=== PATIENT | male | born 1950 | race Caucasian/White ===

== ENCOUNTER → 2019-06-02 10:06 | Outpatient (CLI) | payer MEDICARE, OTHER, SELFPAY ==
[2019-06-07 20:07] LABS: HEPATITIS B SURFACE AG Negative (Negative); Hepatitis A AB, Total Negative (Negative); Hepatitis A IgM Antibody Negative (Negative); Hepatitis B Core AB IgM Negative (Negative); Hepatitis B Core Ab Total Negative (Negative); Hepatitis C Ab <0.1 s/co ratio (0.0-0.9); QNTFERON TB Mitogen Value > 10.00 IU/mL (.); QNTFERON TB Nil Value 0.08 IU/mL (.); QNTFERON TB1+ Ag Value 0.15 IU/mL (.); QNTFERON TB2+ Ag Value 0.09 IU/mL (.)
[2019-06-07 20:11] LABS: Hep B Surface Antibodies Non Reactive (.)
[2019-06-07 20:12] LABS: QNTIFERON TB Positive Criteria Negative (Negative)
== END ==
PROVIDERS: Referring Provider Physician Assistant Medical; Visit Provider Physician Assistant Medical
DX: L40.0 Psoriasis vulgaris (principal); Z79.899 Other long term (current) drug therapy
CPT/HCPCS: 36415; 86480; 86704; 86705; 86706; 86708; 86709; 86803; 87340

== ENCOUNTER → 2022-08-06 | Outpatient (CLI) | payer MEDICARE, OTHER, SELFPAY ==
[2022-08-08 16:08] LABS: QNTFERON TB Mitogen Value > 10.00 IU/mL (.); QNTFERON TB Nil Value 0 IU/mL (.); QNTFERON TB1+ Ag Value 0 IU/mL (.); QNTFERON TB2+ Ag Value 0.01 IU/mL (.)
[2022-08-08 22:19] LABS: Hepatitis B Core Ab Total Negative (Negative); QNTIFERON TB Positive Criteria Negative (Negative)
== END | disposition home or self-care (01) ==
PROVIDERS: Referring Provider Physician Assistant; Visit Provider Physician Assistant
DX: L40.0 Psoriasis vulgaris (principal)
CPT/HCPCS: 36415; 86480; 86704

== ENCOUNTER → 2023-08-30 | Outpatient (CLI) | payer MEDICARE, OTHER, SELFPAY ==
--- OUTSIDE RECORDS SUMMARY | 2023-08-30 11:20 | XMS RPT_ITS | CCD ---
Author Name Unknown Address [facility] [place] [address] Organization [facility] Care Team Providers Care [employer] Name Role Phone MAX GRAHAM MD Primary Care Physician MAX GRAHAM MD Primary Care Unavailable ESTEBAN BAR DO Consulting Unavailable ESTEBAN BAR DO Attending Unavailable MAX GRAHAM MD Attending Unavailable MAX GRAHAM MD Primary Care Unavailable Medications Current Medications Medication Drug Class(es) Dates Sig (Normalized) Sig (Original) betamethasone 0.5 mg/ml / clotrimazole 10 mg/ml topical cream (2 sources) Azole Antifungal, Corticosteroid Start: 08-05-2021 Lotrisone 1%-0.05% topical cream Apply 1 john, Topical, BID, # 45 gram(s), 1 Refill(s), Pharmacy: [id number], Cream, 174, cm, 08/05/21 15:08:00 EST, Height, 132.5, kg, 08/05/21 15:08:00 EST, Dosing Weight Start Date: 08/05/21 Status: Ordered Problems Problem Classification Problem Date Documented Da te Episodic/Chronic Essential hypertension (2 sources) Hypertensive disorder 10-30-2019 Chronic Other inflammatory condition of skin (2 sources) Psoriasis 10-30-2019 Chronic Other nervous system disorders (2 sources) Paresthesia of foot 08-05-2021 Episodic Other nervous system disorders (1 source) Paresthesia 08-19-2021 Episodic Residual codes; unclassified (2 sources) Requires vaccination 04-09-2020 Episodic Thyroid disorders (2 sources) Hypothyroidism 10-30-2019 Chronic Unclassified (1 source) Patient encounter status 09-16-2022 Results Test Name Value Interpretation Reference Range Facil ity Encounters Encounter Date Encounter Type Care Provider Facility Start: 09-16-2022 End: 09-17-2022 ambulatory MAX GRAHAM MD Facility:B Start: 09-16-2022 End: 09-16-2022 Patient encounter procedure MAX GRAHAM MD [facility] Start: 07-08-2022 End: 07-08-2022 ambulatory MAX GRAHAM MD Facility:B Start: 08-11-2021 End: 08-11-2021 Patient encounter procedure MAX GRAHAM MD [facility] Procedures Date Procedure Procedure Detail Performing Clinician Start: 07-08-2022 Colonoscopy MAX NOGUEIRA MD Immunizations Immunization Date Immunization Notes Care Provider [facility] 04-21-2022 influenza virus vaccine, unspecified formulation MAX GRAHAM MD [facility] 05-30-2021 influenza virus vaccine, unspecified formulation MAX GRAHAM MD [facility] 10-10-2020 SARS-CoV-2 (COVID-19 ) mRNA-1273 vaccine MAX GRAHAM MD [facility] Payers Date Payer Category Payer Unknown [id number] 2022 Medicare [id number] 1950 Unknown [id number] 1950 Unknown [id number] Social History Date Type Detail Facility Start: 06-09-2019 Never smoked t obacco (finding) [facility] Sex Assigned At Male [facility] Evaluation + Plan note Note Date & Type Note Facility Evaluation + Plan note Future Appointments Appointment Date:08/19/2021 03:00:00 PM Scheduled Provider:MAX GRAHAM MD Location:[facility] Appointment Type:PC OV Diagnostic Tests PendingAntinuclear Antibody Screen, Serum 08/11/21 [facility] Hospital course Narrative Note Date & Type Note Facility Hospital course Narrative No data available for this section [facility] Hospital Discharge instructions Note Date & Type Note Facility Hospital Discharge instructions No data available for this section [facility] Progress note Note Date & Type Note Facility Progress note No data available for this section [facility] Summary Purpose Family History No Family History Records Found Advance Directives No Advanced Directives Records Found Additional Source Comments Patient Care team informatio n (unrecognized section and content) Care Team Personnel Name: MAX GRAHAM MD Position: P4 Physician - Primary Care Member Role: Primary Care Physician Address: Address: [address] [place] [address] [facility] [place], [place] [address] Care Team Related Persons Name: DEYA PADRON Name: MARGRET PADRON Address: Home [address] [place], [place] [id number] (unrecognized sect ion and content) No Status Records Found INFORMATION SOURCE (unrecogn ized section and content) FOR RECORDS PERTAINING TO PATIENTS WHO ARE OR HAVE BEEN ENROLLED IN A CHEMICAL DEPENDENCY/SUBSTANCEABUSE PROGRAM, SOME INFORMATION MAY BE OMITTED. This clinical summary was aggregated from multiple sources. Caution should be exercised in using it in the provision of clinical care. This summary normalizes information from multiple sources, and as a consequence, information in this document may materially change the coding, format and clinical context of patient data. In addition, data may be omitted in some cases. CLINICAL DECISIONS SHOULD BE BASED ON THE PRIMARY CLINICAL RECORDS. [employer] provides no warranty or guarantee of the accuracy or completeness of information in this document.
[2023-09-02 09:09] LABS: QNTFERON TB Mitogen Value > 10.00 IU/mL (.); QNTFERON TB Nil Value 0.01 IU/mL (.); QNTFERON TB1+ Ag Value 0.01 IU/mL (.); QNTFERON TB2+ Ag Value 0.01 IU/mL (.); QNTIFERON TB Positive Criteria Negative (Negative)
== END | disposition home or self-care (01) ==
LOC: MTLAB 10:37
PROVIDERS: PCP Family Medicine; Referring Provider Physician Assistant; Visit Provider Physician Assistant
DX: L40.0 Psoriasis vulgaris (principal); L85.8 Other specified epidermal thickening; Z79.899 Other long term (current) drug therapy
CPT/HCPCS: 36415; 86480

== ENCOUNTER 2024-06-26 20:35 | Emergency (ER) | payer MEDICARE, OTHER, SELFPAY ==
[2024-06-26 20:36] VITALS: BP 215/100; PULSE 64; RESP 18; TEMP 36.8; O2SAT 99; BMI 43.6
[2024-06-26 21:41] VITALS: BP 200/115; PULSE 98; RESP 14; O2SAT 98
--- NOTE | 2024-06-26 21:49 | EKG12_ITS ---
Test Reason : DYSRHYTHMIA Blood Pressure : */* mmHG Vent. Rate : 68 BPM Atrial Rate : 68 BPM P-R Int : 210 ms QRS Dur : 96 ms QT Int : 416 ms P-R-T Axes : 22 -20 12 degrees QTcB Int : 442 ms Sinus rhythm with 1st degree A-V block Otherwise normal ECG Confirmed by Robert Benedict ([id number]), graphic editor DELMIS SEQUEIRA ([id number]) on 06/27/2024 1:30:02 PM Referred By: Confirmed By: Robert Benedict
--- NOTE | 2024-06-26 21:50 | EX.ED.DYSGE1 ---
HPI History of Present Illness Chief Complaint: General Illness Informant: patient and family Narrative Narrative: 74-year-old male states not feeling well today. States he maybe felt a little bit like this yesterday but not as bad as today. Some lightheadedness, malaise, some intermittent dyspnea today, and gradually developed a headache later in the day for which he took ibuprofen, his headache is gone now. Came to the ER to be evaluated for this, and blood pressure 215/100. States his blood pressure is never been this high. Last time he had a checked was in the summer during his last PCP routine appointment, he does not know what it was but his doctor was not concerned about it and the has had no changes in his losartan 50 mg daily which he takes for blood pressure. He denies any recent illness or decongestants or any other [id number] medications except ibuprofen he took earlier. Has not forgotten to take his blood pressure medication. No recent injuries. Denies any focal neurologic symptoms. No syncope today just some lightheadedness. No chest discomfort or palpitations with the dyspnea he was having. No recent cough or fevers. He states that his has Parkinson's, has been getting worse with that, he is the primary caregiver, and he has been under significant stress with regards to caring for her recently. [facility] Medical History (Updated 06/26/24 @ 23:[address] Deandre David MD) Peripheral neuropathy Hypothyroid Hypertension Home Medications ?Medication ?Instructions ?Recorded ?Last Taken ?Type gabapentin 100 mg capsule 200 mg PO TID 06/26/24 Unknown History hydralazine 25 mg tablet 25 mg PO TID #42 tabs 06/26/24 Unknown Rx levothyroxine 100 mcg tablet 100 mcg PO DAILY 06/26/24 Unknown History losartan 50 mg tablet 50 mg PO DAILY 06/26/24 Unknown History ustekinumab 90 mg/mL subcutaneous 1 subcut .[id number] 06/26/24 Unknown History syringe (Stelara) Allergy/AdvReac Type Severity Reaction Status Date / Time No Known Allergies Allergy Verified 06/26/24 20:36 Social History Smoking Status: Never smoker ROS ROS ED Constitutional Constitutional ED: Reports malaise; Denies chills or fever(s) Eyes Eyes: Denies change in vision or diplopia ENT ENT ED: Denies rhinorrhea or sore throat Cardiovascular Cardiovascular: Denies chest pain, orthopnea or palpitations Respiratory/Chest Respiratory/Chest: Reports dyspnea; Denies cough or orthopnea Gastrointestinal Gastrointestinal: Denies abdominal pain, diarrhea, nausea or vomiting Genitourinary Genitourinary ED: Denies dysuria or hematuria Musculoskeletal Musculoskeletal: Denies back pain or neck pain Integumentary Denies abscess or rash Neurologic Neurologic: Reports headache(s); Denies abnormal gait, abnormal speech, confusion, disequilibrium, lack of coordination, loss of vision, paresthesias, seizures or weakness Psychiatric Psychiatric: Denies anxiety or suicidal thoughts EXAM Physical Exam Const Vital Signs: 06/26/24 20:36 06/26/24 21:41 06/26/24 21:41 Temperature 98.2 F Temperature Source Oral Pulse Rate 64 98 Respiratory Rate 18 14 Respiratory Effort Normal Respiratory Pattern Normal Blood Pressure 215/100 H 200/115 H Blood Pressure Mean 138 143 Pulse Ox 99 98 Oxygen Delivery Method Room Air Room Air 06/26/24 22:30 06/26/24 23:32 Temperature Temperature Source Pulse Rate 66 Respiratory Rate 18 Respiratory Effort Respiratory Pattern Blood Pressure 172/87 H 163/84 H Blood Pressure Mean 115 110 Pulse Ox 98 Oxygen Delivery Method Room Air Positive well nourished and well developed General Appearance ED: well developed and NAD HEENT Reports moist mucous membranes normocephalic and atraumatic Eyes PERRL and EOMs intact bilaterally Neck full ROM and supple Resp normal respiratory effort and clear to auscultation bilaterally Cardio regular rate, regular rhythm and no murmurs Rate: Negative for tachycardic GI non-tender and non-distended Auscultation: normoactive bowel sounds Palpation: soft Back/Spine no CVA tenderness General Back: other FROM Extremity normal to inspection General Extremety ED: Negative for edema, pulses abnormal or tenderness General Extremity: Negative for edema or pulses abnormal Neuro oriented x3, CN's II-XII intact bilaterally and no sensory deficits noted Sensorium / Orientation: awake and alert Motor Exam: strength 5/5 throughout Psych mental status grossly normal Skin no rashes or lesions noted and no wounds MDM MDM MDM Narrative Medical decision making narrative: I suspect patient's symptoms are from the elevated blood pressure. How long it has been high obviously is unknown. Gave him hydralazine 10 mg in the meantime his blood pressure went down to the 130s and then went back up a little bit after that but he was feeling better. His workup is unremarkable there is no sign of kidney injury, acute coronary syndrome, dysrhythmia, or acute metabolic disturbance. I do not think he needs a head CT since he took ibuprofen and his headache resolved. Two-view chest x-ray normal in my interpretation radiology in agreement. I think his dyspnea was probably related to his blood pressure as well, he has no resting tachycardia here and is on no AV kem blockers, is not hypoxic with pulse ox 99% room air so I do not think he needs to be worked up for pulmonary embolus as a cause of the symptoms. Urine shows mild proteinuria. I am going to give him a prescription for couple weeks worth of hydralazine to start until he can follow-up with his doctor. He is comfortable with that plan. Lab Data Attestation: I reviewed the patient's lab results. Labs: Laboratory Results - last 24 hr 06/26/24 06/26/24 22:05 23:21 WBC 7.0 RBC 5.31 Hgb 15.7 Hct 47.1 MCV 88.7 MCH 29.6 MCHC 33.3 RDW Std Deviation 44.9 H RDW Coeff of Garrett 13.8 Plt Count 255 MPV 9.7 Immature Gran % (Auto) 0.300 Neut % (Auto) 60.2 Lymph % (Auto) 24.5 [place] % (Auto) 9.9 Eos % (Auto) 4.1 Baso % (Auto) 1.0 Absolute Neuts (auto) 4.2 Absolute Lymphs (auto) 1.71 Nucleated RBC % 0 Sodium 136 Potassium 4.7 Chloride 106 Carbon Dioxide 28.0 Anion Gap 2 L BUN 16 Creatinine 0.91 Estim Creat Clear Calc 96.74 Est GFR (MDRD) Af Amer 105 Est GFR (MDRD) Non-Af 87 BUN/Creatinine Ratio 17.7 Glucose 116 H Calcium 9.1 Troponin I High Sens 22 Urine Color Yellow Urine Clarity Clear Urine pH 6.0 Ur Specific [place] 1.020 Urine Protein 30 H Urine Glucose (UA) Normal Urine Ketones Negative Urine Occult Blood Negative Urine Nitrite Negative Urine Bilirubin Negative Urine Urobilinogen 1 H Ur Leukocyte Esterase Negative Urine RBC 0 SEEN Urine WBC 0 SEEN Ur Squamous Epith Cells 0-5 SEEN Urine Bacteria 0 SEEN Urine Mucus 0 SEEN Radiography Diagnostic Testing: Clinical Impression(s) from Imaging Studies Chest X-Ray 06/26/24 22:15 IMPRESSION: No evidence of acute cardiopulmonary disease. Electronically Signed: Charlie Mitchell at 22:59 EST , Rhythm Strip Rhythm Strip: Sinus Rhythm Ectopy: None EKG Initial EKG: Attestation: I personally reviewed and interpreted this EKG as follows: Interpretation: Sinus Rhythm, No Acute Injury Pattern and AV Block (1st deg) Comments: Normal intervals except for HI, normal axis, normal EKG other than first-degree AV block Discharge Plan Triage Chief Complaint: General Illness ED Provider: Deandre David Dx/Rx/DC Orders Clinical Impression: Accelerated hypertension, Dyspnea, Proteinuria, unspecified Instructions: Malignant Hypertension Dc Prescriptions: New hydralazine 25 mg tablet 25 mg PO TID Qty: 42 0RF No Action losartan 50 mg tablet 50 mg PO DAILY levothyroxine 100 mcg tablet 100 mcg PO DAILY gabapentin 100 mg capsule 200 mg PO TID Stelara 90 mg/mL syringe 1 subcut .[id number] Rx Instructions: last end of May Primary Care Provider: Patricio Webster Referrals: Patricio Webster MD [Primary Care Provider] - 5-7 Days Print Language: Polish Disposition Disposition: Home, Self Care
[2024-06-26 22:12] LABS: Absolute Lymphocyte Count 1.71 X10^3/uL (0.83-4.51); Absolute Neutrophil Count 4.2 X10^3/uL (2.0-7.7); Basophil# 0.07 X10^3/uL; Eosinophil# 0.29 X10^3/uL; Eosinophils% 4.1 % (0-5); Hematocrit 47.1 % (40-54); Hemoglobin 15.7 g/dL (13.0-16.5); Lymphocyte # 1.71 X10^3/ul (0.83-4.51); Lymphocyte % 24.5 % (19-41); Mean Corp Hgb Conc 33.3 g/dL (32-36); Mean Corpuscular Hgb 29.6 pg (27.0-32.0); Mean Corpuscular Volume 88.7 fL (80-94); Mean Platelet Vol. 9.7 fl (6.2-12.0); Monocyte# 0.69 X10^3/uL; Monocyte% 9.9 % (0-10); NRBC Flagged by Analyzer 0 % (0-5); Neutrophil # 4.21 X10^3/uL (2.7-7.7); Neutrophil % 60.2 % (47-70); Platelet Count 255 K/mm3 (150-450); RBC Distribution Width CV 13.8 % (11.6-14.6); RBC Distribution Width SD 44.9 fl (35.1-43.9); Red Blood Count 5.31 M/mm3 (4.6-6.2)
[2024-06-26] MEDS: hydrALAZINE 20 MG/ML Vial 10 MG IV (22:13)
--- NOTE | 2024-06-26 22:15 | RAD_ITS ---
INDICATION: dyspnea EXAMINATION/TECHNIQUE: X-RAY - XR Chest 2 Views COMPARISON: None. FINDINGS: LINES/DEVICES: None. LUNGS: No consolidation or evidence of an effusion. No evidence of edema or a pneumothorax. MEDIASTINUM AND CARDIOVASCULAR STRUCTURES: Cardiac silhouette is normal in size and contour. Mediastinum is unremarkable. BONES AND SOFT TISSUES: No acute abnormality. RAD/Chest PA and Lateral IMPRESSION: No evidence of acute cardiopulmonary disease. Electronically Signed: Charlie Mitchell DO at 22:59 EST ,
[2024-06-26 22:30] VITALS: BP 172/87; PULSE 66; RESP 18; O2SAT 98
[2024-06-26 22:30] LABS: Anion Gap 2 (5-15); BUN 16 mg/dL (7-18); BUN/Creat Ratio 17.7 RATIO (10-20); Calcium,Total 9.1 mg/dL (8.5-10.1); Chloride 106 mmol/L (98-107); Creatinine, Serum 0.91 mg/dL (0.70-1.30); EST Glomerular Filtration Rate 87 mL/min (>60); Est Glom Filt Rate - Afr Amer 105 mL/min (>60); Estimated Creatinine Clearance 96.74 ml/min; Glucose 116 mg/dL (74-106); Potassium 4.7 mmol/L (3.5-5.1); Sodium Level 136 mmol/L (136-145); Troponin-I HS 22 pg/mL (3.0-78.0)
[2024-06-26 23:26] LABS: Bacteria 0 SEEN /hpf (None Seen); Mucous, Urine 0 SEEN /hpf (<or=2+); Red Blood Cells-Urine 0 SEEN /hpf (0-5); White Blood Cells 0 SEEN /hpf (0-5)
[2024-06-26 23:30] LABS: Color, Urine Yellow (Yellow); Glucose, Dipstick Normal (Normal); Ketone-Dipstick Negative (Negative); Leukocyte Esterase-Dipstick Negative /ul (Negative); Nitrite-Dipstick Negative (Negative); Occult Blood-Urine Negative /ul (Negative); Protein-Dipstick 30 mg/dl (Negative); Urine Bilirubin Dipstick Negative (Negative); Urine Clarity Clear (Clear); Urine Urobilinogen 1 mg/dl (Normal)
[2024-06-26 23:32] VITALS: BP 163/84
[2024-06-26 23:48] LABS: Squamous Epithelial Cells - UA 0-5 SEEN /hpf (0-5)
[2024-06-26 23:59] VITALS: BP 147/82; PULSE 67; RESP 16; TEMP 36.6; O2SAT 100
== END 2024-06-26 23:59 | disposition home or self-care (01) ==
PROVIDERS: Emergency Provider Emergency Medicine; PCP Family Medicine; Visit Provider Emergency Medicine
DX: R06.00 Dyspnea, unspecified (principal); R80.9 Proteinuria, unspecified; I10 Essential (primary) hypertension; Z63.6 Dependent relative needing care at home; Z79.899 Other long term (current) drug therapy
CPT/HCPCS: 71046; 80048; 81001; 84484; 85025; 93005; 96374; 99283

== ENCOUNTER → 2024-09-27 | Outpatient (CLI) | payer MEDICARE, OTHER, SELFPAY ==
[2024-09-29 17:08] LABS: QNTFERON TB Mitogen Value > 10.00 IU/mL (.); QNTFERON TB Nil Value 0.01 IU/mL (.); QNTFERON TB1+ Ag Value 0.03 IU/mL (.); QNTFERON TB2+ Ag Value 0.09 IU/mL (.); QNTIFERON TB Positive Criteria Negative (Negative)
== END | disposition home or self-care (01) ==
LOC: MTLAB 14:22
PROVIDERS: PCP Family Medicine; Referring Provider Physician Assistant; Visit Provider Physician Assistant
DX: L40.0 Psoriasis vulgaris (principal); Z79.899 Other long term (current) drug therapy
CPT/HCPCS: 36415; 86480